=== PATIENT | female | born 1955 | race Two or more races ===

== ENCOUNTER 2020-12-22 20:16 | Inpatient (IN) | payer MEDICARE, OTHER ==
[~2020-12-22] VITALS: Ht 165.1 cm; Wt 77.1 kg
--- NOTE | 2020-12-22 20:17 | NUR ---
Patient will be going into 145A
--- NOTE | 2020-12-22 20:20 | NUR ---
Patient bib ambulance from [facility] for psych admission, patient is awake, anwers questions appropriately. Dr. Payne at [facility] for MSE.
--- NOTE | 2020-12-22 20:35 | NUR ---
Patient picked up pm technician.
--- NOTE | 2020-12-22 20:36 | NUR ---
Called [facility] spoke with Donn, regrading if ct head was done. no ct was done, CT ordered by Dr. Payne.
--- NOTE | 2020-12-22 20:48 | NUR ---
patient returned from CT.
--- NOTE | 2020-12-22 20:57 | NUR ---
Report given to RUBÉN Murillo.
--- NOTE | 2020-12-22 21:29 | NUR ---
Pt. admitted to MHU , under care of Dr. Camilo Belongs List completed.
[2020-12-22] MEDS ORDERED: BLOOD SUGAR DIAGNOSTIC 1 EACH STRIP VI ONE (21:45)
[2020-12-22] MEDS ORDERED: ACETAMINOPHEN 325 MG TABLET PO PRN (21:45)
[2020-12-22] MEDS ORDERED: TEMAZEPAM 7.5 MG CAPSULE PO PRN (22:15)
[2020-12-22 22:35] VITALS: BP 129/47
--- NOTE | 2020-12-22 22:35 | NUR ---
Admitted a 65 year old female to MHU from ER via [facility] accompanied by staff nurse.Patient admitted a on 5150 for GD under the care of .Patient alert confused , appears disheveled , flat affect, unable to provide clear history.Ambulates with the use of walker. Head to toe body assessment done. No skin breakdown.Safety measures in place. Will continue to monitor.
--- NOTE | 2020-12-23 06:26 | NUR ---
Patient slept for 7.30 hours.Confused with episodes of talking to herself. Disorganize thoughts.Kept getting out of bed .Uses walker to ambulate. Placed patient in natasha-chair for safety. Addendum: 12/23/20 at 0654 by JAMIN BARDALES RN Patient slept only for 3.45 hrs
[2020-12-23 07:30] VITALS: BP 104/54
--- NOTE | 2020-12-23 08:36 | NUR ---
Firearms Report: Stevedore Hold completed and submitted a DOJ firearms report for 5150 grave disability certifications. A copy of report has been placed in patient chart.
--- NOTE | 2020-12-23 10:17 | NUR ---
ENE Initial Discharge Note: Patient is currently homeless and will require SNF placement upon discharge. Patient has no family or next of kin contacts and is unable to provide information. SW will continue to work with patient and MD to ensure a safe and proper discharge plan.
--- NOTE | 2020-12-23 13:04 | NUR ---
Gps/Specification Consultant- Angry affect, irritable, offered to take clonopin 0.5 mg po, refused, claimed "no medication for me , i dont need any medications, i didnt sign in to come here, now leave me alone "
[2020-12-23] MEDS: OLANZAPINE ZYDIS 5 MG TAB.RAPDIS PO SCH ×2 (14:34→18:30)
[2020-12-23 16:45] VITALS: BP 133/49
[2020-12-24 07:30] VITALS: BP 136/76
[2020-12-24] MEDS: OLANZAPINE ZYDIS 5 MG TAB.RAPDIS PO SCH ×2 (09:00→16:27)
--- NOTE | 2020-12-24 09:04 | NUR ---
Gps/Msw-Ambulates around with front wheel walker , refusing her routine am meds, gets irritable, when approached
--- NOTE | 2020-12-24 13:16 | NUR ---
ENE SNF Referral: ENE faxed patient's referral packet to [facility] attention to Randa ( ) for review and possible placement.
--- NOTE | 2020-12-24 14:57 | NUR ---
ENE Individual Therapy Note: SW met with patient to provide brief individual counseling to address patient's presenting problem of disorganized thought process. Patient appears to be having visual and auditory hallucinations. Patient is observed grabbing unseen things from the floor and responding to internal stimuli. SW will continue to remain available for the patient for continuos support.
[2020-12-24 16:37] VITALS: BP 138/70
--- NOTE | 2020-12-24 17:45 | NUR ---
received RIESE PETITION request written by Dr. Stone, faxed it to the Court for Riese hearing schedule, will continue to follow up and endorsed to next shift to follow up on Sunday for confirmation of the RIESE HEARING
[2020-12-24 20:24] VITALS: BP 120/43
--- NOTE | 2020-12-24 21:55 | NUR ---
Received patient in the activity room. No s/s of distress noted at this time. AAOx1-2. Pt has blunted response when interacted or engaged. Pt ambulates with front wheel walker. Will continue with plan of care.
--- NOTE | 2020-12-25 05:43 | NUR ---
Patient slept 3.30 hours. Sleep disturbed by roommate yelling through the night. Sleep aide offered patient refused.
[2020-12-25 07:30] VITALS: BP 129/67
[2020-12-25] MEDS: OLANZAPINE ZYDIS 5 MG TAB.RAPDIS PO SCH ×2 (08:45→16:15)
[2020-12-25 16:00] VITALS: BP 114/59
[2020-12-25 20:23] VITALS: BP 118/62
[2020-12-26] MEDS ORDERED: MAGNESIUM HYDROXIDE 30 ML LIQUID UDC PO PRN (04:45)
[2020-12-26] MEDS ORDERED: MAG HYDROX/AL HYDROX/SIMETH 30 ML LIQUID UDC PO PRN (04:45)
--- NOTE | 2020-12-26 06:57 | NUR ---
Received Pt pacing the hallways appearing internally preoccupied, and intent on eloping from the unit. Pt constantly stands by the door when she see someone entering or leaving the unit, and attempts to leave. Requires frequent reminders to remain on the unit as she is on an involuntary hold. Pt does not appear to process this information and is in a constant loop asking either to leave or for staff to give her "cheese popcorn." Presents with auditory hallucinations, responds to internal stimuli. Pt is uncooperative and refuses medications. Disorganized in thought process, requires frequent redirection. VS stable, denied pain.
[2020-12-26 07:30] VITALS: BP 142/51
[2020-12-26] MEDS: OLANZAPINE ZYDIS 5 MG TAB.RAPDIS PO SCH ×2 (08:19→16:33)
--- NOTE | 2020-12-26 15:13 | NUR ---
GPS: Nursing Notes:Zyprexa: Education Print out Material: Staff give education material regarding Zyprexa to patient, explained the pros and cons if continue to refuse her psych medication, staff placed education material of Zyprexa on her bed side table, but patient continue to ignore staff and walk away from staff, impaired judgment, believes that she does not need the medication, continue with treatment plan.
[2020-12-26 16:00] VITALS: BP 127/70
[2020-12-26 20:11] VITALS: BP 136/64
--- NOTE | 2020-12-27 00:34 | NUR ---
Received Pt sitting on the edge of her bed sitting quietly. This conventional mortgage underwriter attempted to engage Pt in conversation to reinforce the Zyprexa medication education given to her from staff on the previous shift. Pt was verbally unresponsive, selectively mute, and stared blankly at the wall. Appeared internally preoccupied and suspicious of staff. Pt was provided verbal education regarding Zyprexa risks, benefits, indications, dosage, and reportable side effects. Pt remained silent then stood up and walked out of the room. Pt continues to resist medication and demonstrates lack of treatmet plan due to poor insight and impaired judgment.
[2020-12-27 07:30] VITALS: BP 140/70
[2020-12-27] MEDS: OLANZAPINE ZYDIS 5 MG TAB.RAPDIS PO SCH ×2 (08:17→16:58)
--- NOTE | 2020-12-27 14:34 | NUR ---
GPS: Nursing Notes: Non-Compliance fo Medication: Patient is awake and responding to her name, impaired judgment, resistant with nursing care, refusing her psych medication, stated "I do not need the medication... I am feeling fine..", AWOL risk, constantly standing by the exit door, waiting for an opportunity to sneak out, gets easily irritable when redirected from the door, bizarre behavior, reaping the pillow to make a bag to bladimir his food and pacing around with it, continue to monitor for safety, unable to formulate a viable plan for self care, continue with treatment plan.
--- NOTE | 2020-12-27 15:11 | NUR ---
SW Individual Therapy Note: SW met with patient to provide brief individual counseling to address patient's presenting problem of disorganized thought process. Patient is selectively mute and appears suspicious of staff and others. Patient is constantly trying to elope and standing by the exit doors. SW redirected patient. SW will continue to remain available for the patient for continuous support.
[2020-12-27 15:18] VITALS: BP 125/54
--- NOTE | 2020-12-27 15:45 | NUR ---
Court Hearing: This SW notified doctor Chase patient's riese hearing is on 12/28/20 at 3PM.
--- NOTE | 2020-12-27 16:25 | NUR ---
ENE LPS Conservator Contact: ENE just received a call from Harjinder from the office of public guardian [facility] ([phone]) stating that he is the patient's KLPS conservator. ENE requested the documentation as well as the detain and treat. Harjinder will be facing the document to the wireworker supervisor and the nursing station faxes. ENE informed Rafal HALL of this. ENE also informed Dr. Stone. Addendum: 12/28/20 at 0900 by RICKI SUAREZ Received documents and reviewed, it is only PROBATE CONSERVATORSHIP.
--- NOTE | 2020-12-28 01:20 | NUR ---
Pt remains internally preoccupied and uncooperative with with unit rules and staff direction. Pt frequently stands by the front door and bangs on in attempting to get out and elope from the unit. Pt was directed back to her room several times, and reminded of her involuntary Hold status. Pt attempted to hit this consumer loan underwriter with her FWW but backed away with verbal intervention from staff. Pt eventually went back to her room and attempted to purposely make herself throw up in the bathroom. Pt was observed putting her fingers down her throat and make loud vomiting type noises. Pt was asked to stop and go to bed, at which time she did without further incident. Pt now observed lying in bed breathing even and unlabored.
[2020-12-28 07:30] VITALS: BP 128/72
[2020-12-28] MEDS: OLANZAPINE ZYDIS 5 MG TAB.RAPDIS PO SCH (08:44)
--- NOTE | 2020-12-28 09:00 | NUR ---
PROBATE Conservatorship: ENE received the conservatorship documents from Harjinder from the office of Public Guardian [facility], which indicates that the patient is Probate Conserved. Stephanie Banegas LCSW reviewed the documents as well and stated we must still proceed with the Riese Hearing for the patient today. ENE notified Chase Kaufman.
--- NOTE | 2020-12-28 10:04 | NUR ---
ENE Family Contact: ENE received a call from patient's sister, Gordon Amezquita ([phone]) who wanted to discuss patient's treatment and discharge plan. SW discussed patient's discharge and treatment plan. Gordon is agreeable with patient's going to [facility] SNF. She stated she will also get in touch with them.
--- NOTE | 2020-12-28 10:22 | NUR ---
ENE SNF Contact: ENE spoke with Randa from [facility][Note 3] and provided her the Probate Conservator's information.
--- NOTE | 2020-12-28 12:44 | NUR ---
ENE PC Hearing: Patient had 5250 probable cause hearing today and it was upheld for grave disability and patient's Riese is complete.
[2020-12-28] MEDS ORDERED: HALOPERIDOL LACTATE 5 MG/1 ML VIAL IM PRN (12:45)
[2020-12-28] MEDS: HALOPERIDOL 2 MG TABLET PO SCH ×2 (12:58→16:41)
[2020-12-28 16:00] VITALS: BP 110/65
[2020-12-28] MEDS ORDERED: OLANZAPINE ZYDIS 5 MG TAB.RAPDIS PO SCH (17:00)
--- NOTE | 2020-12-28 17:02 | NUR ---
patient requested writ for Riese petition ,writ sign by patient faxed to court.
[2020-12-28 21:15] VITALS: BP 123/50
[2020-12-28] MEDS: CLONAZEPAM 0.5 MG TABLET PO PRN (23:23)
--- NOTE | 2020-12-28 23:32 | NUR ---
GPS: Pt.is anxious,paranoid and delusional. Re-directed frequently. Klonopin 0.5mg offered and taken by pt. Re-assured prn. Quiet environment provided to facilitate sleep. Will continue to monitor.
[2020-12-29 07:49] LABS: BASOPHILS % (AUTO) 0.3 % (0.0-2.0); EOSINOPHILS # (AUTO) 0.1 K/uL (0.0-0.7); EOSINOPHILS % (AUTO) 1.9 % (0.0-7.0); HEMATOCRIT 39.5 % (31.2-41.9); LYMPHOCYTES # (AUTO) 2.4 K/uL (20.0-40.0); LYMPHOCYTES % (AUTO) 45.4 % (20.5-51.5); MEAN CORPUSCULAR HEMOGLOBIN 30.5 uug (24.7-32.8); MEAN CORPUSCULAR HGB CONC 33 g/dL (32.3-35.6); MEAN CORPUSCULAR VOLUME 92.8 fL (75.5-95.3); MONOCYTES # (AUTO) 0.5 K/uL (2.0-10.0); MONOCYTES % (AUTO) 9.4 % (0.0-11.0); NEUTROPHILS # (AUTO) 2.3 K/uL (1.8-8.9); PLATELET COUNT (AUTO) 264 K/uL (179-408); RED BLOOD CELL COUNT(AUTO) 4.26 MIL/uL (3.63-4.92); WHITE BLOOD COUNT (AUTO) 5.4 K/uL (3.8-11.8)
[2020-12-29 07:57] VITALS: BP 113/77
[2020-12-29] MEDS: HALOPERIDOL 2 MG TABLET PO SCH (08:00)
[2020-12-29 08:24] LABS: BILIRUBIN,TOTAL 0.4 mg/dL (0.2-1.0); CREATININE 0.9 mg/dL (0.6-1.3); MAGNESIUM 1.9 mg/dL (1.8-2.4); PHOSPHOROUS 2.3 mg/dL (2.5-4.9); POTASSIUM 4.2 mmol/L (3.5-5.1)
[2020-12-29 09:13] LABS: THYROID STIMULATING HORMONE 1.982 mIU/mL (0.358-3.740)
--- NOTE | 2020-12-29 15:00 | NUR ---
patient is guarded, anxious, restless, and interacts minimally with staff. patient is preoccupied with being discharged, she asks multiple times if she can be walked off the unit and be discharged. patient also walks to the entrance doors and stands there to walk out if the door is open. patient requires constant redirection and reality orientation, educated about discharge planning process. patient appears bizarre, unkempt, and unclean. she is noted to be RTIS, speaking to herself and unknown others. Patient also performs bizarre movements, for example getting on her hands and knees on the floor and staying in that position until redirected by staff. patient is adherent with medication, no adverse reaction noted. patient is able to ambulate and perform self care and ADL's independently.
[2020-12-29 16:00] VITALS: BP 134/67
[2020-12-29] MEDS: NEUTRA PHOS PACKET PO ONE ×2 (16:10→16:19)
[2020-12-29] MEDS: HALOPERIDOL 5 MG TABLET PO SCH (16:16)
[2020-12-29 20:33] VITALS: BP 130/60
[2020-12-29] MEDS: CLONAZEPAM 0.5 MG TABLET PO PRN (21:06)
[2020-12-30] MEDS: CLONAZEPAM 0.5 MG TABLET PO PRN (05:54)
[2020-12-30 07:30] VITALS: BP 116/63
--- NOTE | 2020-12-30 08:07 | NUR ---
Discharge Note: Patient will be discharged to [facility] [address] [place] [address] ([phone]) via ambulance. Patient will be transported by ambulance at 1pm. Spoke with Randa phlebotomy coordinator at the facility who states they are ready to accept the patient today. Patient will follow-up at the facility with Dr. Kirby Poultry Farmer Meat and Dr. Rowley Psychiatrist. Patient is alert and oriented times 3, denies suicidal or homicidal ideation, and is aware and agreeable with discharge plans. Patient presents with appropriate mood and congruent affect. Patient is unable to plan for self-care at this time, however, is willing to accept care provided at the facility. Patient does not have any supportive or next of kiln contacts at this time. Patients probate conservatorHarjinder from the office of public Guardian [facility] ([phone]) is made aware and is agreeable with discharge plan. Patients sisterGordon ([phone]) is made aware and is agreeable with discharge plan. Patient signed the homeless waiver upon discharge and a copy was placed in the chart. Homeless resources were provided and include [address] information line for shelters and homeless resources. A copy of all resources given to patient was also placed in the chart. Patient presents with euthymic and congruent mood.
[2020-12-30] MEDS: HALOPERIDOL 5 MG TABLET PO SCH (08:29)
--- NOTE | 2020-12-30 12:37 | NUR ---
Gps/Modeling Analyst- Discharge planning in progress. Ambulance arranged for brain picker at 1300. Called [facility], report was given to Nurse Sigrid. Patient's sister Loraine aware of discharge plan. patient assigned to room # 10 . All belongings given back to patient. Patient in good spirit, no complaints noted.
--- NOTE | 2020-12-30 13:30 | NUR ---
Gps/Line Person- discharged to [facility] via ambulance, in good spirit, no complaints noted.
== END 2020-12-30 13:30 | DRG 885 ==
LOC: ER 20:17 → GPS 21:01
PROVIDERS: ADMIT Psychiatry & Neurology Psychiatry
DX: F25.0 Schizoaffective disorder, bipolar type (principal); Z59.0 Homelessness; Z91.19 Patient's noncompliance with other medical treatment and regimen; Z73.6 Limitation of activities due to disability; M79.662 Pain in left lower leg; F29 Unspecified psychosis not due to a substance or known physiological condition; Z20.822 Contact with and (suspected) exposure to COVID-19
CPT/HCPCS: 36415; 70450; 83735; 84100; 84443; 85025; A4663

== ENCOUNTER 2021-10-27 22:44 | Inpatient (IN) | payer MEDICARE, OTHER ==
[~2021-10-27] VITALS: Ht 170.2 cm; Wt 77.1 kg
--- NOTE | 2021-10-27 22:55 | NUR ---
DR. PERRY AT BEDSIDE, MSE IN PROGRESS.
[2021-10-27] MEDS ORDERED: haldol (23:17)
[2021-10-27] MEDS ORDERED: LORA-259 PO (23:17)
[2021-10-27] MEDS ORDERED: DIVA500T4 PO (23:17)
--- NOTE | 2021-10-27 23:38 | NUR ---
Received admission report from ER nurse.
--- NOTE | 2021-10-27 23:46 | NUR ---
GAVE REPORT TO DUNCAN RAMEY.
--- NOTE | 2021-10-28 00:05 | NUR ---
Patient arrived in the floor via gurney. Awake, alert mumbling, garbled speech, delayed responses, Patient was limping during transfer from gurney to chair that requires hand held assist on ambulation. Shower provided and able to participate, noted some redness on both under breast, applied lotion for now. Requires minimal assist during grooming. Patient tolerated procedure well. No complaint presented. Vs stable. In no apparent distress.
--- NOTE | 2021-10-28 00:11 | NUR ---
Pt. admitted to MHU , under care of Dr. Stone and Dr. Wilkerson Belongs List completed Pt noted to be calm and cooperative. Denies any pain/discomfort prior to admission. No SOB or labored breathing, afebrile. Clear speech, complete sentences.
[2021-10-28 00:18] VITALS: BP 121/70
[2021-10-28] MEDS ORDERED: ACETAMINOPHEN 325 MG TABLET PO PRN (00:30)
[2021-10-28] MEDS ORDERED: MAGNESIUM HYDROXIDE 30 ML LIQUID UDC PO PRN (00:30)
[2021-10-28] MEDS ORDERED: TEMAZEPAM 7.5 MG CAPSULE PO PRN (00:30)
[2021-10-28] MEDS ORDERED: MAG HYDROX/AL HYDROX/SIMETH 30 ML LIQUID UDC PO PRN (00:30)
--- NOTE | 2021-10-28 02:13 | NUR ---
Snoring in bed at this time. Siderails x 2 up. Bed alarm on. Will monitor.
[2021-10-28] MEDS: CLONAZEPAM 0.5 MG TABLET PO PRN ×3 (03:36→08:43)
--- NOTE | 2021-10-28 06:04 | NUR ---
Late entry: A called was placed to Harjinder Ramos, a [place] Public Guardian, in regards to this patient. Because of the off hours, he was unavailable and a message was left for him at the number . A detain and treat form was faxed to , a number provided in the chart from the ED. A verbal authorization to detain and treat, was given over the phone to Stephanie Banegas until the paper copy becomes available and placed in the chart. This matter will be endorsed to the charge nurse Tyra of the oncoming shift for immediate follow up.
[2021-10-28 07:30] VITALS: BP 120/65
--- NOTE | 2021-10-28 11:43 | NUR ---
ENE Initial Discharge Note Pt is currently homeless. ENE called and left voice message for pt's conservator, Harjinder Ramos ([phone]) requesting call back to discuss treatment and discharge plan. ENE will continue to work with pt, conservator, and MD to ensure a safe and proper discharge.
--- NOTE | 2021-10-28 11:43 | NUR ---
SW Conservator Contact SW called and left voice message for pt's conservator, Harjinder Ramos ([phone]) requesting call back to discuss treatment and discharge plan.
--- NOTE | 2021-10-28 11:56 | NUR ---
Treatment Plan Patient refused to sign treatment plan due to disorganized thought process.
--- NOTE | 2021-10-28 12:00 | NUR ---
Gps/Ironer- Harjinder Ramos called ( deputy Public Guardian for the pt.) was informed to sign papers authorization to be detained and treated , claimed will not be able to signed papers till sunday.
[2021-10-28] MEDS: DIVALPROEX 250 MG TABLET.DR PO SCH ×2 (13:00→17:00)
[2021-10-28] MEDS: HALOPERIDOL 5 MG TABLET PO SCH (17:00)
--- NOTE | 2021-10-28 17:35 | NUR ---
Gps/Moss Bleacher-Reoffered routine meds. as ordered, refused patient claimed she does not need any medications, when does not want to listen when tried to explained. .Patient kept clearing up her throat and spitting , emesis bag offered to spit on, pt. tend to spits on the sheets., discouraged from spitting on the sheets .
[2021-10-28] MEDS: TRAZODONE 50 MG TABLET PO SCH (21:00)
[2021-10-28] MEDS ORDERED: HALOPERIDOL LACTATE 5 MG/1 ML VIAL IM PRN ×2 (22:00→23:45)
--- NOTE | 2021-10-28 23:00 | NUR ---
LPS NOTE; Stephanie Banegas, [facility] director, was notified of fact that pt does not have the detain and treat form signed, in the chart. She stated she would follow up. A few minutes later, the patients public guardian called, and stated he would sign it, and EMAILit to cedric Banegas. A few minutes later, the form was received signed, and placed in the chart. The doctor was notified, and new orders were given, and noted.
[2021-10-28] MEDS ORDERED: OLANZAPINE 10 MG VIAL IM PRN (23:30)
--- NOTE | 2021-10-29 05:33 | NUR ---
Received to care last night, sitting in the hallway outside her room, non interactive, refusing medications, and all staff direction. Her behavior was very bizarre, taking the cloth liners from the linen barrels and placing them on her head. She also stripped her bed, and wrapped herself in the linen, then complained that her bed was unmade, and tried to lie in a bed in an unoccupied room. She was directed to her room. The bed was remade, and she went to sleep, and continues to sleep. No distress noted.
[2021-10-29] MEDS: HALOPERIDOL 5 MG TABLET PO SCH ×2 (08:55→16:14)
[2021-10-29] MEDS: DIVALPROEX 250 MG TABLET.DR PO SCH ×3 (08:55→16:14)
[2021-10-29] MEDS: HALOPERIDOL LACTATE 5 MG/1 ML VIAL IM PRN ×2 (09:13→17:21)
--- NOTE | 2021-10-29 15:09 | NUR ---
GPS: Nursing Notes: Thought Disorder: Patient is awake and responding to her name, impaired judgment, resistant with nursing care, refusing to participate in therapeutic groups, isolative and withdrawn in her room, refusing her medications, loud, pressured, and delayed speech, unkempt appearance, evasive when questioned by staff, unable to formulate a viable plan for self care, bizarre behavior at times, paranoid behavior, believes that we are trying to poison her, continue to monitor for safety, continue with treatment plan.
[2021-10-29 16:23] VITALS: BP 103/50
[2021-10-29 20:00] VITALS: BP 94/69
[2021-10-29] MEDS: TRAZODONE 50 MG TABLET PO SCH ×2 (21:59→22:30)
--- NOTE | 2021-10-30 05:27 | NUR ---
Received to care, sitting at her bed, appearing distracted by internal stimuli. She was compliant with her bedtime medications, and took a shower after being incontinent, and allowed staff to place a diaper on her, and went to sleep, and has slept well, throughout the night. No distress noted.
[2021-10-30 07:14] LABS: HEMATOCRIT 37.5 % (31.2-41.9); MEAN CORPUSCULAR HEMOGLOBIN 30.3 uug (24.7-32.8); MEAN CORPUSCULAR VOLUME 90.7 fL (75.5-95.3); PLATELET COUNT (AUTO) 273 K/uL (179-408)
[2021-10-30 07:37] LABS: ALANINE AMINOTRANSFERASE 22 U/L (14-59); ALKALINE PHOSPHATASE 104 U/L (50-136); ASPARTATE AMINOTRANSFERASE 23 U/L (15-37); BILIRUBIN,TOTAL 0.3 mg/dL (0.2-1.0); CARBON DIOXIDE 29 mmol/L (21-32); CHLORIDE 103 mmol/L (98-107); CREATININE 0.7 mg/dL (0.6-1.3); GLUCOSE 123 mg/dL (74-106); PHOSPHOROUS 2.6 mg/dL (2.5-4.9); TOTAL PROTEIN, SERUM 6.4 g/dL (6.4-8.2); UREA NITROGEN, BLOOD 14 mg/dL (7-18)
[2021-10-30 07:42] VITALS: BP 118/77
[2021-10-30] MEDS: HALOPERIDOL 5 MG TABLET PO SCH ×2 (08:52→16:49)
[2021-10-30] MEDS: CLONAZEPAM 0.5 MG TABLET PO PRN (08:52)
[2021-10-30] MEDS: DIVALPROEX 250 MG TABLET.DR PO SCH ×3 (08:52→16:49)
[2021-10-30 13:55] LABS: VALPROIC ACID < 3 ug/mL (50-100)
[2021-10-30 15:57] VITALS: BP 158/78
[2021-10-30] MEDS: HALOPERIDOL LACTATE 5 MG/1 ML VIAL IM PRN (16:54)
[2021-10-30 20:56] VITALS: BP 144/74
[2021-10-30] MEDS: TRAZODONE 50 MG TABLET PO SCH (21:39)
[2021-10-31] MEDS: HALOPERIDOL 5 MG TABLET PO SCH ×3 (08:35→17:58)
[2021-10-31] MEDS: DIVALPROEX 250 MG TABLET.DR PO SCH ×4 (08:35→17:57)
[2021-10-31] MEDS: HALOPERIDOL LACTATE 5 MG/1 ML VIAL IM PRN (08:58)
--- NOTE | 2021-10-31 09:36 | NUR ---
GPS: Nursing Notes: Thought Disorder: Patient is awake and responding to her name, disoriented, disorganized, hoarding trash under her pillow, gets easily irritable when cleaning her bed, stated "It is not trash..", paranoid behavior, believes that we are trying to poison her, believes that she is going to get hurt, unkempt appearance, refusing to shower, urinating on the floor at times, urinating on herself, but staff is trying to change her wet diaper, patient believes that she is dried, "I am fine.. I am not wet.. I do not want to get hurt..", unable to formulate a viable plan for self care, continue to monitor for safety, continue with treatment plan.
--- NOTE | 2021-10-31 10:43 | NUR ---
Firearms Report Sales Support Consultant completed and submitted a DOJ firearms report for 5150 grave disability certifications. A copy of report has been placed in patient chart.
--- NOTE | 2021-10-31 11:24 | NUR ---
SW Conservator Contact SW called and left voice mail for pt's conservator, Harjinder Ramos ([phone]) with [place] public guardian, requesting call back to discuss treatment and discharge planning. Pt will need placement at a locked facility when she is ready for discharge.
--- NOTE | 2021-10-31 11:26 | NUR ---
SW Family Contact SW received voice message from pt's sister Gordon Millan ([phone]). ENE called and spoke with Gordon who informed she is pt's primary emergency contact. Gordon stated she had been the perseon to inform pt's conservator when pt left previous SNF.
[2021-10-31] MEDS ORDERED: HALOPERIDOL DECANOATE 50 MG/1 ML AMPUL IM SCH (13:00)
[2021-10-31 16:12] VITALS: BP 123/70
[2021-10-31 20:13] VITALS: BP 132/68
[2021-10-31] MEDS: TRAZODONE 50 MG TABLET PO SCH (20:40)
--- NOTE | 2021-11-01 07:00 | NUR ---
remain isolative,but compliant with meds. slept 8.30 hrs through the night.
[2021-11-01] MEDS: DIVALPROEX 250 MG TABLET.DR PO SCH ×3 (09:12→17:06)
[2021-11-01] MEDS: HALOPERIDOL 5 MG TABLET PO SCH ×2 (09:12→17:06)
[2021-11-01] MEDS: ENSURE ENLIVE (VAN) 240 ML LIQUID PO SCH ×2 (12:15→17:00)
[2021-11-01 16:00] VITALS: BP 117/56
[2021-11-01 20:11] VITALS: BP 124/54
[2021-11-01] MEDS: TRAZODONE 50 MG TABLET PO SCH (21:26)
[2021-11-02 07:30] VITALS: BP 115/49
[2021-11-02] MEDS: DIVALPROEX 250 MG TABLET.DR PO SCH ×3 (08:32→17:13)
[2021-11-02] MEDS: HALOPERIDOL 5 MG TABLET PO SCH ×2 (08:32→17:13)
[2021-11-02] MEDS: ENSURE ENLIVE (VAN) 240 ML LIQUID PO SCH ×2 (08:32→17:13)
--- NOTE | 2021-11-02 10:22 | NUR ---
GPS: RECEIVED PT ON BED, AWAKE AND VERBALLY RESPONSIVE. PT COOPERATIVE WITH CARE AND COMPLIANT WITH MEDS. POOR JUDGEMENT AND IMPULSE NOTED.
[2021-11-02 16:00] VITALS: BP 129/82
[2021-11-02 20:16] VITALS: BP 116/78
[2021-11-02] MEDS: TRAZODONE 50 MG TABLET PO SCH (20:51)
[2021-11-03 07:30] VITALS: BP 107/45
[2021-11-03] MEDS: ENSURE ENLIVE (VAN) 240 ML LIQUID PO SCH ×2 (08:00→17:00)
[2021-11-03] MEDS: DIVALPROEX 250 MG TABLET.DR PO SCH ×3 (08:53→18:25)
[2021-11-03] MEDS: HALOPERIDOL 5 MG TABLET PO SCH ×2 (08:53→18:25)
--- NOTE | 2021-11-03 11:49 | NUR ---
ENE DPOA Contact ENE contacted Harjinder BERRY ([phone]) and discussed pt's discharge plan. Harjinder stated he would like the nursing facility for the pt to be locked for her own safety and further updates to be discussed with him.
[2021-11-03 16:00] VITALS: BP 121/67
[2021-11-03 20:00] VITALS: BP 119/72
[2021-11-03] MEDS: TRAZODONE 50 MG TABLET PO SCH (21:36)
--- NOTE | 2021-11-04 05:42 | NUR ---
Pt vomited on the floor last night. Emesis bag and basin offered but refused, tossed them away, yelled "No, i don't want that" and continued to spit on the floor. Meds offered but refused to take anything. Skin care provided, diaper change done. Safety precautions in place.
[2021-11-04 07:30] VITALS: BP 103/48
[2021-11-04] MEDS: ENSURE ENLIVE (VAN) 240 ML LIQUID PO SCH ×2 (08:00→17:32)
[2021-11-04] MEDS: HALOPERIDOL 5 MG TABLET PO SCH ×2 (09:40→17:32)
[2021-11-04] MEDS: DIVALPROEX 250 MG TABLET.DR PO SCH ×3 (09:40→17:32)
--- NOTE | 2021-11-04 10:16 | NUR ---
GPS: PT RECEIVED ON BED, ISOLATIVE. QUIET. NOTED TALKING TO SELF. COOPERATIVE WITH CARE AND COMPLIANT WITH MEDS. WITH LOOSENESS OF ASSOCIATION. WHEN ASKED.
--- NOTE | 2021-11-04 13:17 | NUR ---
GPS: PT REFUSED DEPAKOTE 1300 MEDICATION. PT STAYS IN HER BED, FULLY COVERED WITH BLANKET. PT ANSWERS BACK BUT OUT OF CONTEXT. ONE EPISODE OF VOMITING WITH SMALL AMOUNT OF CLEAR LIQUID CONSISTENCY, LIKE SALIVA. WILL MONITOR PT.
[2021-11-04 17:06] VITALS: BP 110/52
--- NOTE | 2021-11-04 17:59 | NUR ---
GPS: PT ON BED DENIES ANY PAIN OR DISCOMFORT. COMPLIANT WITH MEDICATION THIS TIME AND ASKED FOR A WATER AFTER CONSTRUCTION COST ESTIMATOR GAVE A FRESH ICE COLD WATER. PT IN CALM MOOD.
[2021-11-04 20:00] VITALS: BP 115/67
--- NOTE | 2021-11-04 20:30 | NUR ---
RECEIVED PATIENT IN HER ROOM IN BED. SHE IS OBSERVED COVERED, ALL THE WAY TO HER HEAD, WITH A SHEET. PATIENT ABLE TO AWAKE; HOWEVER, SHE DID NOT ENGAGED IN ANY MEANINGFUL CONVERSATION. SHE WAS NOTED EASILY IRRITABLE, LOW MOOD, FLAT AFFECT. PATIENT WAS REASSURED FOR HER SAFETY. V/S STABLE. SAFETY AND FALL PRECAUTION IN PLACE. WILL CONTINUE TO MONITOR.
[2021-11-04] MEDS: TRAZODONE 50 MG TABLET PO SCH (21:12)
--- NOTE | 2021-11-04 22:00 | NUR ---
PATIENT WAS NOTED SPITTING ON THE FLOOR. SHE WAS ENCOURAGE TO USE BAG. SHE WAS ALSO TAKEN TO THE RESTROOM. ADLs WERE DONE. PO FLUIDS AND SNACKS WERE GIVEN. PATIENT REQUIRES REDIRECTION. SHE IS NOTED WITH DISORGANIZED SPEECH AND SHE IS HARD TO REDIRECT. WILL CONTINUE TO MONITOR.
[2021-11-05 07:30] VITALS: BP 124/55
[2021-11-05] MEDS: ENSURE ENLIVE (VAN) 240 ML LIQUID PO SCH ×2 (08:00→16:53)
[2021-11-05] MEDS: HALOPERIDOL 5 MG TABLET PO SCH ×2 (08:58→16:53)
[2021-11-05] MEDS: DIVALPROEX 250 MG TABLET.DR PO SCH ×3 (08:58→16:53)
--- NOTE | 2021-11-05 11:43 | NUR ---
Gps/Reefer Truck Driver- Ambulates around, monitored closely for safety, needed to be redirected, tends to wander around other patient's room, checking their trash bags, noted spitting in the thrash, offered emesis green bag to spit, but does not know how to use it,, she put stuff inside, wash cloth , papers , plastic spoons. Constantly needing redirections .
[2021-11-05 16:00] VITALS: BP 138/119
--- NOTE | 2021-11-05 16:54 | NUR ---
Gps/Precision Dyer- Tempt 102.2 oral per STATISTICAL METHODS TEACHER, , noted patient wrapped pillow case around her face. Fluid offered, encouraged. Temp rechecked oral 99.5, tylenol 650 mg po was given,, also patient was swabbed for covid antigen , awaiting result.
[2021-11-05 20:00] VITALS: BP 130/70
[2021-11-05] MEDS: TRAZODONE 50 MG TABLET PO SCH (20:23)
--- NOTE | 2021-11-05 20:30 | NUR ---
RECEIVED PATIENT IN HER ROOM IN BED. SHE IS NOTED AWAKE A/O X 1, HOWEVER, SHE STATED THAT HER NAME IS NOT ANABELLA BUT WILL NOT SAY WHAT IS HER NAME. PATIENT IS A POOR HISTORIAN. SHE WAS REQUIRED MULTIPLE REDIRECTION AND REASSURANCE, HER MOOD IS LOW, AFFECT IS FLAT, SHE IS LABILE AND UNPREDICTABLE. SHE CONTINUE SPITTING SALIVA. PATIENT WAS REASSURED FOR HER SAFETY. V/S STABLE, SHE IS AFEBRILE IN NO DISTRESS. SAFETY AND FALL PRECAUTION IN PLACE. WILL CONTINUE TO MONITOR.
--- NOTE | 2021-11-06 06:48 | NUR ---
PATIENT SLEPT FOR APPROX 4 HRS THROUGH THE NIGHT. SHE CONTINUE SPITTING ON THE FLOOR. SHE IS UNABLE TO BE REDIRECTED. WILL CONTINUE TO MONITOR.
[2021-11-06 07:47] VITALS: BP 103/64
[2021-11-06] MEDS: DIVALPROEX 250 MG TABLET.DR PO SCH ×3 (08:30→16:32)
[2021-11-06] MEDS: HALOPERIDOL 5 MG TABLET PO SCH ×2 (08:30→16:32)
[2021-11-06] MEDS: ENSURE ENLIVE (VAN) 240 ML LIQUID PO SCH ×2 (08:31→16:33)
--- NOTE | 2021-11-06 08:42 | NUR ---
Patient refused her blood to be drawn by phlebotomy.
--- NOTE | 2021-11-06 15:02 | NUR ---
PCR covid test was collected and sent it to lab.
[2021-11-06 15:52] VITALS: BP 103/74
--- NOTE | 2021-11-06 15:58 | NUR ---
Patient is received awake in her room. A/O X 2 to person, place. Pt. affect is confused, disoriented, labile, internal responding. Ambulates independently. Incontinent. Compliant with medications most of the time. Emotional support provided. Fall and safety precautions implemented.
[2021-11-06 20:18] VITALS: BP 111/62
[2021-11-06] MEDS: TRAZODONE 50 MG TABLET PO SCH (20:54)
[2021-11-07] MEDS: DIVALPROEX 250 MG TABLET.DR PO SCH ×4 (08:53→17:13)
[2021-11-07] MEDS: HALOPERIDOL 5 MG TABLET PO SCH ×3 (08:53→17:13)
[2021-11-07] MEDS: ENSURE ENLIVE (VAN) 240 ML LIQUID PO SCH ×2 (08:54→17:19)
[2021-11-07] MEDS: HALOPERIDOL LACTATE 5 MG/1 ML VIAL IM PRN (09:49)
--- NOTE | 2021-11-07 11:15 | NUR ---
SW Contact Note: SW contacted Harjinder ([phone]) to discuss pt's discharge plan. Harjinder agreed to any locked SNF upon discharge. SW reported she will follow up to confirm discharge date and location.
--- NOTE | 2021-11-07 11:57 | NUR ---
Patient is given back up Haldol 5 mg IM at 09:52 as prescribed for refusing Haldol PO.
--- NOTE | 2021-11-07 16:18 | NUR ---
Received patient awake in her room. A/O X 1 - 2 to person. Pt. affect is flat, withdrawn, isolative, internal responding. Ambulates without assistance. Refuses medications. Emotional support given. Fall and safety precautions implemented.
--- NOTE | 2021-11-07 19:30 | NUR ---
Pt awake, alert and orientedx1. Pt is withdrawn and isolative. Pt in no acute distress. Safety and comfort provided. Will continue to monitor.
[2021-11-07] MEDS: TRAZODONE 50 MG TABLET PO SCH (21:23)
--- NOTE | 2021-11-08 06:11 | NUR ---
Pt in no acute distress. Prescribed medication given and pt tolerated it well. Safety and comfort provided. All needs are met. Will endorse to incoming nurse for continuity of care.
[2021-11-08] MEDS ORDERED: HALOPERIDOL DECANOATE 50 MG/1 ML AMPUL IM ONE ×2 (09:00→11:45)
--- NOTE | 2021-11-08 10:33 | NUR ---
WOUND CARE CONSULT: PT REFUSED SKIN ASSESSMENT. RECOMMENDATIONS MADE FOR SKIN PROTECTION. DISCUSSED WITH NURSING STAFF. PT IS AMBULATORY. MD IN AGREEMENT WITH PLAN OF CARE.
[2021-11-08] MEDS: DIVALPROEX 250 MG TABLET.DR PO SCH ×3 (10:36→18:19)
[2021-11-08] MEDS: HALOPERIDOL 5 MG TABLET PO SCH ×2 (10:36→18:19)
[2021-11-08] MEDS: ENSURE ENLIVE (VAN) 240 ML LIQUID PO SCH ×2 (10:40→17:00)
[2021-11-08] MEDS ORDERED: Z GUARD REMEDY PASTE 57 GM TUBE TOP PRN (10:45)
--- NOTE | 2021-11-08 19:26 | NUR ---
Recd patient sleeping upon talking to patient she remains non compliant with information and taking of her meds explained to patient if she refusedshe would have to have IM she refused injections and took p.o. without problems, pt refused wound nurse too see her under breasts and buttocks, Mayra ordered as needed. In r4oom most of shift [id number] with peers and staff . Continued to provide a safe non threatening environment
[2021-11-08 20:05] VITALS: BP 116/72
[2021-11-08] MEDS: TRAZODONE 50 MG TABLET PO SCH (21:06)
[2021-11-08] MEDS: Z GUARD REMEDY PASTE 57 GM TUBE TOP SCH (21:07)
--- NOTE | 2021-11-09 07:20 | NUR ---
rec'd patient awake and oriented times 2 sitting at bedside acting bizzare to staff, patient continues to go up to desk asking for water, milk and wheres breakfast, pt informed of breakfast time and given water. As morning went on patient began to clap repeatedly informed patient to stop and leave area shes disturbing milieu patient then became more agitated and un controllable in following instructions. Patient in and out of dayroom acting out with disturbing unit still call to Caroline for orders to assist in calming pt down. 1150 patient began yelling and touching food carts, pt redirected to her room and Security called to assist in giving ZYPREXA 10 mg im , patient resisted for a minute then complied after show of force, After half hour patient calmed down and monitored for safetyq 15 minutes times 30 minutes no s/s of distress noted. Continue to [facility] for safety.
[2021-11-09 07:30] VITALS: BP 117/54
--- NOTE | 2021-11-09 07:30 | NUR ---
Patient rec;d awake confused and delusional , laughing off and on with self very going over and over every word , insight still poor and mood guarded. No peer interaction, has periods of cursing loud redirected with some change. Med compliant wit meds. Up in natasha chair for some time today continue to monitor for safety.
[2021-11-09] MEDS: ENSURE ENLIVE (VAN) 240 ML LIQUID PO SCH ×2 (08:00→17:31)
[2021-11-09] MEDS: Z GUARD REMEDY PASTE 57 GM TUBE TOP SCH ×2 (09:00→21:00)
[2021-11-09] MEDS: DIVALPROEX 250 MG TABLET.DR PO SCH ×3 (10:34→17:31)
[2021-11-09] MEDS: HALOPERIDOL 5 MG TABLET PO SCH ×2 (10:34→17:31)
[2021-11-09 16:00] VITALS: BP 132/65
[2021-11-09 20:00] VITALS: BP 132/68
[2021-11-09] MEDS: TRAZODONE 50 MG TABLET PO SCH (20:37)
[2021-11-10 07:30] VITALS: BP 117/46
[2021-11-10] MEDS: HALOPERIDOL 5 MG TABLET PO SCH ×2 (09:31→20:51)
[2021-11-10] MEDS: DIVALPROEX 250 MG TABLET.DR PO SCH ×3 (09:31→18:06)
[2021-11-10] MEDS: Z GUARD REMEDY PASTE 57 GM TUBE TOP SCH ×2 (09:35→20:51)
[2021-11-10] MEDS: ENSURE ENLIVE (VAN) 240 ML LIQUID PO SCH ×2 (09:35→17:00)
--- NOTE | 2021-11-10 11:25 | NUR ---
ENE Facility Contact Note: ENE contacted Ирина ([phone]) in admissions at [facility] regarding pt's referral packet. Ирина informed ENE she will call her back to confirm.
[2021-11-10 16:49] VITALS: BP 116/45
[2021-11-10 20:00] VITALS: BP 113/60
--- NOTE | 2021-11-10 20:30 | NUR ---
RECEIVED PATIENT IN THE HALLWAY. SHE WAS NOTED SITTING IN A WHEELCHAIR WITH HER HEAD NAD FACE COVERED WITH A SHEET. SHE IS NOTED A/O X 1. SHE IS A POOR HISTORIAN. SHE IS UNABLE TO MAKE EYE CONTACT. SHE REQUIRES REDIRECTIONS AND REALITY CHECKS. SHE IS ENCOURAGE TO VERBALIZED FEELINGS AND MAKE HER NEEDS KNOWN. PT IS SOMEWHAT LESS ISOLATIVE LESS WITHDRAW. SHE WAS GIVEN PO FLUIDS AND SNACKS. V/S STABLE, SHE IS REASSURED FOR HER SAFETY. SAFETY AND FALL PRECAUTIONS IN PLACE. WILL CONTINUE TO MONITOR.
[2021-11-10] MEDS: QUETIAPINE FUMARATE 25 MG TABLET PO SCH (20:51)
[2021-11-10] MEDS: TRAZODONE 50 MG TABLET PO SCH (20:51)
[2021-11-11 07:30] VITALS: BP 93/50
[2021-11-11] MEDS: HALOPERIDOL 5 MG TABLET PO SCH ×2 (08:58→20:30)
[2021-11-11] MEDS: DIVALPROEX 250 MG TABLET.DR PO SCH ×3 (08:58→17:32)
[2021-11-11] MEDS: ENSURE ENLIVE (VAN) 240 ML LIQUID PO SCH ×2 (08:59→17:32)
[2021-11-11] MEDS: Z GUARD REMEDY PASTE 57 GM TUBE TOP SCH ×2 (08:59→20:31)
--- NOTE | 2021-11-11 09:46 | NUR ---
SW Facility Contact: ENE contacted [facility] ([phone]) and MikeИрина Malave ([phone]) who informed ENE that they are currently on admissions hold due to covid and also that pt is a high elopement risk.
[2021-11-11 16:48] VITALS: BP 127/49
--- NOTE | 2021-11-11 17:53 | NUR ---
Gps/Chemical Applicator- Stayed in the dinning room during her dinner, was interacts when engaged . Needed to be redirected from time to time, less spitting noted
[2021-11-11 20:00] VITALS: BP 140/68
[2021-11-11] MEDS: CLONAZEPAM 0.5 MG TABLET PO PRN (20:30)
[2021-11-11] MEDS: QUETIAPINE FUMARATE 25 MG TABLET PO SCH (20:30)
[2021-11-11] MEDS: TRAZODONE 50 MG TABLET PO SCH (20:30)
--- NOTE | 2021-11-12 06:44 | NUR ---
The patient was calm most of the night, but woke up very delusional and uncooperative. Pacing the halls, digging into trash. At one point the patient tried to remove the large table from the dining room. Continuous redirection and distraction needed. This telegraphic typewriter repairer encouraged the patient to verbalize her needs, but that had little to no results. The patient has high energy and a labile mood this am. Staff will monitor the patient closely for safety. Patient continues to be incontinent and hoarding supplies under the mattress and fixated on trash.
--- NOTE | 2021-11-12 07:30 | NUR ---
PATIENT AGITATED AND NON COMPLIANT WITH MILIEU HAS TO BE COAXED TO TAKE MEDICATIONS, PT IS CONFUSEDAND DISORIENTED.. uP TO DAYROOM IN EDISON CHAIR AFTER LUNCH, REMAINS DIS SHELVED. pTAIENT IS CONFUSED.CONTINUE TO MONITROR FOR SAFETY
[2021-11-12] MEDS: ENSURE ENLIVE (VAN) 240 ML LIQUID PO SCH ×2 (08:00→17:46)
[2021-11-12 08:34] VITALS: BP 108/60
[2021-11-12] MEDS: DIVALPROEX 250 MG TABLET.DR PO SCH ×3 (09:00→17:16)
[2021-11-12] MEDS: Z GUARD REMEDY PASTE 57 GM TUBE TOP SCH ×2 (09:00→20:05)
[2021-11-12] MEDS: HALOPERIDOL 5 MG TABLET PO SCH ×2 (09:00→20:03)
--- NOTE | 2021-11-12 09:17 | NUR ---
patient to refuse lab tests and refused to let nurse look at buttocks to apply ZGUARD with encouragement. Patient5 very paranoid this am/. continue to monitor for safety.
[2021-11-12 15:48] VITALS: BP 95/54
--- NOTE | 2021-11-12 18:52 | NUR ---
sleeping at this time with blanket overhead respirations unlabored . CONTINUE TO MONITOR FOR SAFETY
[2021-11-12 20:00] VITALS: BP 110/46
[2021-11-12] MEDS: TRAZODONE 50 MG TABLET PO SCH (20:03)
[2021-11-12] MEDS: QUETIAPINE FUMARATE 25 MG TABLET PO SCH (20:03)
[2021-11-12] MEDS: CLONAZEPAM 0.5 MG TABLET PO PRN (20:04)
[2021-11-13 07:47] VITALS: BP 96/41
[2021-11-13] MEDS: HALOPERIDOL 5 MG TABLET PO SCH ×2 (09:15→20:40)
[2021-11-13] MEDS: DIVALPROEX 250 MG TABLET.DR PO SCH ×3 (09:15→16:52)
[2021-11-13] MEDS: Z GUARD REMEDY PASTE 57 GM TUBE TOP SCH ×2 (09:16→20:41)
[2021-11-13] MEDS: ENSURE ENLIVE (VAN) 240 ML LIQUID PO SCH ×2 (09:16→17:19)
[2021-11-13 16:17] VITALS: BP 95/46
--- NOTE | 2021-11-13 17:57 | NUR ---
Received patient sleeping in her room. A/O X 1 -2 to person. Pt. affect is labile, internal responding, disoriented. Compliant with medications with prompt. Requires more than minimal assistance with ADL. Incontinent, refuses barrier cream prescribed for her buttocks. Ambulates without assistance. Reality orientation provided. Fall and safety precautions implemented.
[2021-11-13 20:19] VITALS: BP 99/50
[2021-11-13] MEDS: TRAZODONE 50 MG TABLET PO SCH (20:40)
[2021-11-13] MEDS: QUETIAPINE FUMARATE 25 MG TABLET PO SCH (20:40)
[2021-11-13] MEDS: CLONAZEPAM 0.5 MG TABLET PO PRN (20:40)
--- NOTE | 2021-11-14 06:15 | NUR ---
Received the patient in her room , covered in feces . The patient was resistant at first to cleaning up, but eventually made the decision to get completely naked when the staff left her room and come into the vizcarra throwing her linen on the floor. After being encouraged to shower the patient remained in bed, and was medication compliant. This patient continues to bladimir multiple items that become in reach. Linens, towels, empty juice containers. Paper sacks filled with trash are coveted by the patient. Again this am, the patient was incontinent of stool and urine, requiring a complete change. The patient had episodes during the night of hacking up clear, thin ,sputum and spitting it wherever she felt like it. No consideration or awareness of appropriate behaviors or rules of any kind. Other than providing basic needs for the patient, no changes in behavior noted as improved since admission by this sports book writer.
[2021-11-14 07:44] VITALS: BP 112/52
[2021-11-14] MEDS: DIVALPROEX 250 MG TABLET.DR PO SCH ×3 (08:43→17:29)
[2021-11-14] MEDS: Z GUARD REMEDY PASTE 57 GM TUBE TOP SCH ×2 (08:43→20:29)
[2021-11-14] MEDS: HALOPERIDOL 5 MG TABLET PO SCH ×2 (08:43→20:28)
[2021-11-14] MEDS: ENSURE ENLIVE (VAN) 240 ML LIQUID PO SCH ×2 (08:44→17:29)
--- NOTE | 2021-11-14 15:35 | NUR ---
Received patient sleeping in her room. A/O X 2 to person, place. Pt. affect is labile, disorganized, disoriented, internal responding. Patient has the habit of spitting on the floor the entire day. Patient hoarders papers in her socks, gets mad when we take them out. Incontinent. Patient has UTI and started on antibiotics. Ambulates without assistance. Compliant with medications. Reassurance given. Fall and safety precautions implemented. Addendum: 11/14/21 at 1556 by ALISHA MCMANUS RN Please disregard having UTI and being taking antibiotics.
[2021-11-14 16:20] VITALS: BP 108/46
[2021-11-14 20:04] VITALS: BP 112/51
[2021-11-14] MEDS: QUETIAPINE FUMARATE 25 MG TABLET PO SCH (20:28)
[2021-11-14] MEDS: TRAZODONE 50 MG TABLET PO SCH (20:28)
[2021-11-15 07:30] VITALS: BP 96/57
[2021-11-15] MEDS: HALOPERIDOL 5 MG TABLET PO SCH ×2 (08:14→20:41)
[2021-11-15] MEDS: DIVALPROEX 250 MG TABLET.DR PO SCH ×3 (08:14→16:57)
[2021-11-15] MEDS: Z GUARD REMEDY PASTE 57 GM TUBE TOP SCH ×2 (08:15→20:41)
[2021-11-15] MEDS: ENSURE ENLIVE (VAN) 240 ML LIQUID PO SCH ×2 (08:15→17:28)
--- NOTE | 2021-11-15 14:55 | NUR ---
ENE DPOA Contact: ENE contacted Harjinder ([phone]) and left a voicemail regarding pt's discharge update and requested a call back to discuss details regarding pts accepted facility to [address] [place] [place] [address] .
--- NOTE | 2021-11-15 14:57 | NUR ---
Received patient sleeping in her room. A/O X 2 to person. Pt. affect is labile, internal responding, confused at times, disoriented, isolative. Compliant with medications with prompt. Ambulates without assistance. Incontinent. Requires more than minimal assistance with ADL. Reality orientation provided. Fall and safety precautions implemented.
[2021-11-15 16:00] VITALS: BP 145/55
[2021-11-15 20:00] VITALS: BP 132/47
[2021-11-15] MEDS: QUETIAPINE FUMARATE 25 MG TABLET PO SCH (20:41)
[2021-11-15] MEDS: TRAZODONE 50 MG TABLET PO SCH (20:41)
[2021-11-16 07:52] VITALS: BP 112/50
--- NOTE | 2021-11-16 08:00 | NUR ---
Patient refused blood drawn (Valproic acid levels and BMP). Multiple redirection given yet ineffective. Patient was informed of the importance to comply with blood drawn to prevent valproic acid toxicity, but was ineffective. will continue to encourage compliant.
[2021-11-16] MEDS: ENSURE ENLIVE (VAN) 240 ML LIQUID PO SCH ×2 (08:25→16:45)
[2021-11-16] MEDS: HALOPERIDOL 5 MG TABLET PO SCH ×2 (08:25→20:43)
[2021-11-16] MEDS: DIVALPROEX 250 MG TABLET.DR PO SCH ×3 (08:25→16:44)
[2021-11-16] MEDS: Z GUARD REMEDY PASTE 57 GM TUBE TOP SCH ×2 (08:28→20:44)
--- NOTE | 2021-11-16 11:53 | NUR ---
ENE BAUMAN Contact: ENE contacted pts [facility] ([phone]) and left a voicemail again asking for a call back to discuss pts discharge update regarding accepted facility to [address] [place] [address] that was confirmed by elver Johnson at the facility ([phone]).
[2021-11-16 17:01] VITALS: BP 118/52
--- NOTE | 2021-11-16 17:05 | NUR ---
Patient continue refusing blood drawn. Valproic acid and BMP. valproic level were less than 3 on 10/30/22, will try tomorrow morning.
[2021-11-16 20:00] VITALS: BP 118/48
[2021-11-16] MEDS: QUETIAPINE FUMARATE 25 MG TABLET PO SCH (20:43)
[2021-11-16] MEDS: TRAZODONE 50 MG TABLET PO SCH (20:43)
--- NOTE | 2021-11-17 05:22 | NUR ---
Patient has poor insight and poor judgement. Mostly does not want to get out her bed, med compliant. Patient will remain in a psych facility for further evaluation and treatment.
--- NOTE | 2021-11-17 07:30 | NUR ---
PATIENT IN BED SLEEPING IN NO DISTRESS, AROUSALABLE TO VERBAL STIMULI, COMPLIANT WIT MEDS AFTER COAXING WITH JUICE AND APPLE SAUCE. ORAL INTAKE GOOD, AFFECT BLUNT MOOD IS GUARDED NO PEER INTERACTION NOTED. CONTINUE TO MONITOR FOR SAFETY.
[2021-11-17 07:50] VITALS: BP 107/47
[2021-11-17] MEDS: DIVALPROEX 250 MG TABLET.DR PO SCH ×3 (09:35→17:19)
[2021-11-17] MEDS: HALOPERIDOL 5 MG TABLET PO SCH ×2 (09:35→20:47)
[2021-11-17] MEDS: Z GUARD REMEDY PASTE 57 GM TUBE TOP SCH ×2 (09:37→20:48)
[2021-11-17] MEDS: ENSURE ENLIVE (VAN) 240 ML LIQUID PO SCH ×2 (09:37→17:19)
--- NOTE | 2021-11-17 10:45 | NUR ---
ENE DPOA Contact: ENE contacted Harjinder ([phone]) and discussed final discharge plan for pt on 11/18/21 to [facility] located at [address] [place] [address] that was confirmed by Elizabeth in admissions ([phone]). ENE provided name, address and phone number of the facility to Harjinder. Harjinder was agreeable with the discharge plan for 11/18/21.
[2021-11-17 16:00] VITALS: BP 110/49
--- NOTE | 2021-11-17 18:42 | NUR ---
PATIENT BECAME AGITATED ABOUT MEALS NOT ON TIME TALKING LOUD AND NOT WAITING TO BE SERVED SHOWS BITTER INTERACTIONS AT THESE TIMES MOSTLY POOR TIME FOLLOWING INSTRUCTION COMTINUE TO MONITOR FOR SAFETY. AND LIMIT SETTING.
[2021-11-17 20:06] VITALS: BP 115/48
[2021-11-17] MEDS: CLONAZEPAM 0.5 MG TABLET PO PRN (20:47)
[2021-11-17] MEDS: QUETIAPINE FUMARATE 25 MG TABLET PO SCH (20:47)
[2021-11-17] MEDS: TRAZODONE 50 MG TABLET PO SCH (20:47)
[2021-11-18 08:00] VITALS: BP 113/64
--- NOTE | 2021-11-18 08:45 | NUR ---
ENE Discharge Note: Pt will be discharged to [facility] ([phone]) via Ambulance transportation at 11AM. ENE spoke with Elizabeth ([phone]), admin coordinator at the facility who states they are ready to accept the patient today. Pt is aware and agreeable with discharge plans. Pt is alert and oriented x0, is unable to plan for self-care at this time; however, is willing to accept care at SNF. Pt denies any suicidal or homicidal ideation. Pt will follow-up at the facility with Psychiatrist, Dr. Rowley and Comb Capper, Dr. Mahan. Pt presents with calm mood and congruent affect. Patients [facility] ([phone]) is aware and agreeable with discharge plan.
[2021-11-18] MEDS: HALOPERIDOL 5 MG TABLET PO SCH (12:25)
[2021-11-18] MEDS: DIVALPROEX 250 MG TABLET.DR PO SCH (12:25)
[2021-11-18] MEDS: ENSURE ENLIVE (VAN) 240 ML LIQUID PO SCH (12:38)
[2021-11-18] MEDS: Z GUARD REMEDY PASTE 57 GM TUBE TOP SCH (12:39)
--- NOTE | 2021-11-18 13:15 | NUR ---
Pt is being discharged to [facility] via ambulance. Pt is agreeable. Pt is a/ox1-2. Pt denies distress. VS stable. Belongings returned. Report was called into the facility. MRSA swab done at the discharge.
--- NOTE | 2021-11-18 13:17 | NUR ---
ENE DPOA Contact: ENE contacted Harjinder ([phone]) as requested and left a voicemail to notify that pt is leaving the hospital via ambulance to [facility] ([phone]).
[2021-12-07] MEDS ORDERED: HALOPERIDOL DECANOATE 50 MG/1 ML AMPUL IM ONE (09:00)
== END 2021-11-18 12:45 | DRG 885 ==
LOC: ER 22:47 → GPS 23:00
PROVIDERS: ADMIT Nurse Practitioner Psychiatric/Mental Health; ATTEND Hospitalist
DX: F25.9 Schizoaffective disorder, unspecified (principal); E44.0 Moderate protein-calorie malnutrition; Z91.19 Patient's noncompliance with other medical treatment and regimen; Z59.00 Homelessness unspecified; Z20.822 Contact with and (suspected) exposure to COVID-19; Z79.899 Other long term (current) drug therapy; F29 Unspecified psychosis not due to a substance or known physiological condition; Z73.6 Limitation of activities due to disability; E88.09 Other disorders of plasma-protein metabolism, not elsewhere classified; Z68.26 Body mass index [BMI] 26.0-26.9, adult
CPT/HCPCS: 36415; 71045; 80164; 83735; 84100; 85025; 97161; A4663; J1630; J1631; J3490; U0003